=== PATIENT | male | born 1990 | race Caucasian/White ===

== ENCOUNTER → 2021-06-22 | Outpatient (CLI) | payer OTHER | END | disposition home or self-care (01) | LOC: LAB EV 17:59 → LAB SHORT 17:59 | DX: L03.90 Cellulitis, unspecified (principal) | CPT/HCPCS: 87070; 87075; 87205 ==

== ENCOUNTER 2022-08-27 18:32 | Emergency (ER) | payer OTHER ==
[~2022-08-27] VITALS: Ht 182.9 cm; Wt 90.7 kg
[2022-08-27 21:45] VITALS: BP 120/80
== END 2022-08-27 22:04 | disposition short-term general hospital (02) ==
LOC: ER 18:32
DX: T21.22XA Burn of second degree of abdominal wall, initial encounter (principal); T22.20XA Burn of second degree of shoulder and upper limb, except wrist and hand, unspecified site, initial encounter; T24.211A Burn of second degree of right thigh, initial encounter; T21.06XA Burn of unspecified degree of male genital region, initial encounter; T31.11 Burns involving 10-19% of body surface with 10-19% third degree burns
CPT/HCPCS: 90714; J1170; J2405; J7030